=== PATIENT | female | born 1950 | race Caucasian/White ===

== ENCOUNTER 2021-01-04 17:02 | Outpatient (REF) | payer MEDICARE, BC, SELFPAY ==
[2021-01-04 18:10] LABS: Anion Gap 12.1 mmol/L (3-11); BUN 11 mg/dL (7-18); CO2 29.9 mmol/L (21.0-32.0); CREATININE 0.7 mg/dL (0.55-1.02); Calcium 9.4 mg/dL (8.5-10.1); Calculated LDL 98 mg/dL (<100); Chloride 101 mmol/L (98-107); Cholesterol 219 mg/dL (<200); Glucose 89 mg/dL (74-106); HDL Cholesterol 102 mg/dL (40-60); Potassium 3.8 mmol/L (3.5-5.1); Sodium 143 mmol/L (136-145); Triglyceride 98 mg/dL (<150)
== END 2021-01-04 17:03 | disposition home or self-care (01) ==
LOC: NCHCN 17:02
PROVIDERS: Visit Provider Family Medicine
DX: E78.5 Hyperlipidemia, unspecified (principal); I10 Essential (primary) hypertension
CPT/HCPCS: 80048; 80061

== ENCOUNTER 2022-01-14 11:58 | Outpatient (REF) | payer MEDICARE, BC, SELFPAY ==
[2022-01-14 14:44] LABS: Abs Immature Grans 0.01 10^3/uL (0.0-0.06); Absolute Basophil Count 0.02 10^3/uL (0.0-0.2); Absolute Eosinophil Count 0.15 10^3/uL (0.0-0.7); Absolute Lymphocyte Count 0.78 10^3/uL (1.2-3.4); Absolute Monocyte Count 0.37 10^3/uL (0.1-0.8); Absolute Neutrophil Count 2.11 10^3/uL (1.2-6.7); Basophils % 0.6; Eosinophils % 4.4; HCT 46.1 % (36.0-46.0); HGB 15.8 g/dL (11.2-15.7); Immature Grans % 0.3; Lymphocytes % 22.7; MCHC 34.3 % (32.0-36.0); MCV 93.5 fL (80-95); MPV 9.9 fL (8.0-11.0); Monocytes % 10.8; Neutrophils % 61.2; Nucleated RBC 0 %; Platelet Count 258 10^3/uL (130-400); RBC 4.93 10^6/uL (3.93-5.22); RDW 11.7 % (11.7-14.6); RDW-SD 40.9 fL; WBC 3.44 10^3/uL (4.4-10.8)
[2022-01-14 15:26] LABS: Anion Gap 8.8 mmol/L (3-11); BUN 12 mg/dL (7-18); CO2 30.2 mmol/L (21.0-32.0); CREATININE 0.8 mg/dL (0.55-1.02); Calcium 10.1 mg/dL (8.5-10.1); Chloride 99 mmol/L (98-107); Glucose 101 mg/dL (74-106); Potassium 3.6 mmol/L (3.5-5.1); Sodium 138 mmol/L (136-145)
== END 2022-01-14 11:59 | disposition home or self-care (01) ==
LOC: NCHCN 11:58
PROVIDERS: Visit Provider Family Medicine
DX: D72.819 Decreased white blood cell count, unspecified (principal); I10 Essential (primary) hypertension
CPT/HCPCS: 80048; 85025

== ENCOUNTER 2023-01-28 16:23 | Outpatient (REF) | payer MEDICARE, BC, SELFPAY ==
[2023-01-28 16:07] LABS: HCT 43.4 % (36.0-46.0); HGB 15.2 g/dL (11.2-15.7); MCH 32.5 pg (27.0-33.0); MCV 93 fL (80-95); MPV 9.6 fL (8.0-11.0); Platelet Count 256 10^3/uL (130-400); RBC 4.67 10^6/uL (3.93-5.22); RDW 11.8 % (11.7-14.6); RDW-SD 40.4 fL; WBC 3.37 10^3/uL (4.4-10.8)
[2023-01-28 16:28] LABS: Anion Gap 9.6 mmol/L (3-11); BUN 10 mg/dL (7-18); CO2 29.4 mmol/L (21.0-32.0); CREATININE 0.8 mg/dL (0.55-1.02); Chloride 102 mmol/L (98-107); Estimated GFR 79.22 (mL/min/1.73m2); Glucose 100 mg/dL (74-106); Sodium 141 mmol/L (136-145)
[2023-01-29 10:44] LABS: Hepatitis C Ab w Rflx HCV PCR Negative (Negative)
== END 2023-01-28 16:24 | disposition home or self-care (01) ==
LOC: NCHCN 16:23
PROVIDERS: Visit Provider Family Medicine
DX: Z00.00 Encounter for general adult medical examination without abnormal findings (principal); I10 Essential (primary) hypertension; D75.1 Secondary polycythemia; D72.819 Decreased white blood cell count, unspecified
CPT/HCPCS: 80048; 85027; 86803

== ENCOUNTER 2023-08-19 15:23 | Outpatient (REF) | payer MEDICARE, BC, SELFPAY ==
[2023-08-19 16:02] LABS: Abs Immature Grans 0.01 10^3/uL (0.0-0.06); Absolute Basophil Count 0.02 10^3/uL (0.0-0.2); Absolute Monocyte Count 0.34 10^3/uL (0.1-0.8); Absolute Neutrophil Count 2.37 10^3/uL (1.2-6.7); Basophils % 0.5; Eosinophils % 2.6; HCT 41.9 % (36.0-46.0); HGB 14.9 g/dL (11.2-15.7); Immature Grans % 0.3; MCH 32.6 pg (27.0-33.0); MCHC 35.6 % (32.0-36.0); MCV 92 fL (80-95); MPV 9.7 fL (8.0-11.0); Monocytes % 8.9; Neutrophils % 61.7; Platelet Count 266 10^3/uL (130-400); RBC 4.57 10^6/uL (3.93-5.22); RDW 11.8 % (11.7-14.6); RDW-SD 39.8 fL; WBC 3.84 10^3/uL (4.4-10.8)
[2023-08-19 18:02] LABS: ALT 39 U/L (14-59); AST 21 U/L (15-37); Albumin 4.5 g/dL (3.4-5.0); Alkaline Phosphatase 69 U/L (46-116); Anion Gap 9.9 mmol/L (3-11); BUN 9 mg/dL (7-18); Bilirubin, Total 0.5 mg/dL (0.2-1.0); CO2 27.1 mmol/L (21.0-32.0); CREATININE 0.7 mg/dL (0.55-1.02); Calcium 9.6 mg/dL (8.5-10.1); Calculated LDL 114 mg/dL (<100); Chloride 98 mmol/L (98-107); Cholesterol 228 mg/dL (<200); Estimated GFR 92.98 (mL/min/1.73m2); Glucose 98 mg/dL (74-106); HDL Cholesterol 100 mg/dL (40-60); Potassium 3.6 mmol/L (3.5-5.1); Sodium 135 mmol/L (136-145); Total Protein 7.2 g/dL (6.4-8.2); Triglyceride 73 mg/dL (<150)
[2023-08-19 22:55] LABS: Parathyroid Hormone,Intact 40 pg/mL (19-88)
== END 2023-08-19 15:24 | disposition home or self-care (01) ==
LOC: NCHCN 15:23
PROVIDERS: Visit Provider Nurse Practitioner Family
DX: E78.5 Hyperlipidemia, unspecified (principal); I10 Essential (primary) hypertension; Z83.49 Family history of other endocrine, nutritional and metabolic diseases; D72.819 Decreased white blood cell count, unspecified
CPT/HCPCS: 80053; 80061; 83970; 85025

== ENCOUNTER → 2024-06-04 14:00 | Outpatient (CLI) | payer MEDICARE, BC, SELFPAY ==
--- NOTE | 2024-06-04 13:49 | DI.RAD_ITS ---
Exam(s) XR CERVICAL SPINE COMP 4-5V EXAM: XR CERVICAL SPINE COMP 4-5V CLINICAL HISTORY: M54.12 Cervical radiculopathy. TECHNIQUE: 2D digital imaging was performed. Five views were performed. COMPARISON: No exams were available for comparison FINDINGS: BONES: No fracture or destructive lesion. Vertebral bodies are unremarkable. Prominent facet joint degenerative changes throughout. Severe degenerative changes also present at C1-2. DISKS: Mild narrowing of the C4-5 disc space. Prominent endplate osteophytes. Moderate narrowing of the C5-6 disc space with prominent endplate osteophytes. Bilateral neural foraminal narrowing at th cristino levels. ALIGNMENT: Cervical spinal alignment is within normal limits. SOFT TISSUE: Normal. The lung apices are clear. IMPRESSION: Severe degenerative changes at C1-2. Bilateral neural foraminal narrowing at C4-5 and C5-6 very to c ombination of degenerative changes. DATA REPOSITORY: RADIATION DOSE DELIVERED:
--- OUTSIDE RECORDS SUMMARY | 2024-06-04 14:24 | XMS_ITS | Encounter Summary ---
[place] [address] Care Team Providers Care Maintenance Worker Swimming Pool Name Role Phone Dar Lester MD Primary Care Provider [phone] Reason for Referral * Consultation (Routine) - Closed Specialty Diagnoses / Procedures Referred By Contesther t Referred To Contact Hematology and Oncology Diagnoses Polycythemia, secondary Leukopenia, unspecified type Dar Lester MD [address] [place] [address] [facility] [address] [place] [address] Referral ID Status Reason Start Date Expiration Date V isits Requested Visits Authorized [id number] Closed Consult, Test & Treat 02/04/2022 02/04/2023 6 6 Encounter Details Date Type Department Care Team (Latest Contact Info) Description 02/04/2022 Transcribe Orders eDH Incoming Referrals [phone] Dar Lester MD [address] [place] [address] Polycythemia, secondary; Leukopenia, unspecified type Social History Tobacco Use Types Packs/Day Years Used Date Smoking Tobacco: Former Smokeless Tobacco: Never Comments:40 years ago Alcohol Use Standard Drinks/Week Comments Yes 0 (1 standard drink = 0.6 oz pur e alcohol) wine Sex and Gender Information Value Date Recorded Sex Assigned at Female 01/31/2021 4:13 PM EDT Gender Identity Female 08/31/2023 10:11 AM EDT Sexual Orientation Straight 01/31/2021 4: 13 PM EDT documented as of this encounter Plan of Treatment Scheduled Referrals Name Type Priority Associated Diagnoses Orde r Schedule Referral to Hematology and Oncology Outpatient Referral Routine Polycythemia, secondary Leukopenia, unspecified type Ordered: 02/04/2022 documented as of this encounter Visit Diagnoses Diagnosis Polycythemia, secondary Leukopenia, unspecified type documented in this encounter Care Teams Maintenance Worker Swimming Pool Relationship Specialty Start Date End Date Dar Lester MD [address] [place] [address] PCP - General Family Medicine 02/02/21 documented as of this encounter
--- OUTSIDE RECORDS SUMMARY | 2024-06-04 14:24 | XMS_ITS | Encounter Summary ---
Author Organization [facility] Address [address] [place] [address] Care Team Providers Care Court Specialist Name Role Phone Dar Lester MD Primary Care Provider [phone] Reason for Referral * Radiology Services (Routine/Next Available) - Authorization Not Required Specialty Diagnoses / Procedures Referred By Andreinaac nathalia Referred To Contact Diagnoses Visit for screening mammogram Procedures MA BREAST SCREENING KIMBER BILATERAL Madelin Burgess CNM [address] [place] [address] [facility] Referral ID Status Reason Start Date Expiration Date Visits Requested Visits Authorized [id number] Authorization Not Required 2 1 1 Reason for Visit * Radiology Services (Routine/Next Available) - Authorization Not Required Specialty Diagnoses / Procedures Referred By Terese sloan Referred To Contact Diagnoses Visit for screening mammogram Procedures MA BREAST SCREENING KIMBER BILATERAL Madelin Burgess CNM [address] [place] [address] [facility] Referral ID Status Reason Start Date Expiration Date Visits Requested Visits Authorized [id number] Authorization Not Required 2 1 1 Encounter Details Date Type Department Care Team (Latest Contact Info) Description 10/23/2022 11:30 EST - 10/23/2022 23:59 EST Hospital Encounter [facility] - [facility] Mammography [address] [place], [place] [address] Visit for screening mammogram Discharge Disposition: Home or Self Care Social History Tobacco Use Types Packs/Day Years Used Date Smoking Tobacco: Never Assessed Sex and Gender Information Value Date Recorded Sex Assigned at Not on file Gender Identity Not on file Sexual Orientation Not on file documented as of this encounter Last Filed Vital Signs Vital Sign Reading Time Taken Comments Blood Pressure - - Pulse - - Temperature - - Respiratory Rate - - Oxygen Saturation - - Inhaled Oxygen Concentration - - Weight 64.4 kg (142 lb) 10/23/2022 1236 EST Height 157.5 cm (5' 2) 10/23/2022 1236 EST Body Mass Index 25.97 10/23/2022 1236 EST documented in this encounter Discharge Disposition Disposition Code Departure Means Destination Home or Self Care documented in this encounter Plan of Treatment Not on file documented as of this encounter Procedures Procedure Name Priority Date/Time Associated Diagnosis Comments MA BREAST SCREENING KIMBER BILATERAL Routine 10/23/2022 12:38 EST Visit for screening mammogram documented in this encounter Results * MA BREAST SCREENING KIMBER BILATERAL (10/23/2022 12:38 EST) Anatomical Region Laterality Modality Breast Bilateral Mammography 10/24/2022 16:3 9 EST Impressions 10/24/2022 16:39 EST Negative, no evidence of malignancy. RECOMMENDATION: Routine screening mammography is recommended. OVERALL ASSESSMENT: BI-RADS 1: Negative These results will be communicated to your patient via a lay letter from Radiology. If any additional imaging is needed we will contact your patient directly. Narrative 10/24/2022 16:39 EST MA BREAST SCREENING KIMBER BILATERAL ??10/23/2022 11:30 AM History: routine screening 10/22/21 Comparison: ??Comparison has been made to previous images. Technique: Routine 3D tomosynthesis with synthesized 2D views with CAD Bilateral Breast Composition: The breast tissue is heterogenously dense, which may obscure small masses. Bilateral Breast Findings: ??No significant masses, calcifications or other abnormalities are seen. Procedure Note Riaz Porras MD - 10/24/2022 MA BREAST SCREENING KIMBER BILATERAL 10/23/2022 11:30 AM History: routine screening 10/22/21 Comparison: Comparison has been made to previous images. Technique: Routine 3D tomosynthesis with synthesized 2D views with CAD Bilateral Breast Composition: The breast tissue is heterogenously dense,which may obscure small masses. Bilateral Breast Findings: No significant masses, calcifications or otherabnormalities are seen. IMPRESSION Negative, no evidence of malignancy. RECOMMENDATION: Routine screening mammography is recommended. OVERALL ASSESSMENT: BI-RADS 1: Negative These results will be communicated to your patient via a lay letter fromRadiology. If any additional imaging is needed we will contact yourpatient directly. Madelin Burgess CNM IMG MAMMOGRAPH Y ORDERABLES documented in this encounter Visit Diagnoses Diagnosis Visit for screening mammogram Other screening mammogram documented in this encounter Care Teams Court Specialist Relationship Specialty Start Date End Date Dar Lester MD [address] [place] [address] PCP - General 10/23/22 documented as of this encounter
--- OUTSIDE RECORDS SUMMARY | 2024-06-04 14:24 | XMS_ITS | Encounter Summary ---
Author Organization [facility] Address [facility] [place] [address] Care Team Providers Care Jewel Staker Name Role Phone Dar Lester MD Primary Care Provider [phone] Reason for Visit * Reason Comments Advice Only * Consultation (Routine) - Closed Specialty Diagnoses / Procedures Referred By Contac t Referred To Contact Hematology and Oncology Diagnoses Polycythemia, secondary Leukopenia, unspecified type Dar Lester MD [address] [place] [address] [place] [address] [facility] [address] [place] [address] Referral ID Status Reason Start Date Expiration Date V isits Requested Visits Authorized [id number] Closed Consult, Test & Treat 02/04/2022 02/04/2023 6 6 Encounter Details Date Type Department Care Team (Late st Contact Info) Description 04/05/2022 12:30 PM EDT Office Visit Hematology [place] [address] Kaela Can MD [facility] [place] [address] Erythrocytosis; Leukopenia, unspecified type Social History Tobacco Use Types Packs/Day Years Used Date Smoking Tobacco: Former Smokeless Tobacco: Never Comments:40 years ago Alcohol Use Standard Drinks/Week Comments Yes 0 (1 standard drink = 0.6 oz pur e alcohol) wine Overall Financial Resource Strain (CARDIA) Answe r Date Recorded How hard is it for you to pa y for the very basics like food, housing, medical care, and heating? Not hard at all 04/02/2022 Hunger Vital Sign Answer Date Recorded Within the past 12 months, y ou worried that your food would run out before you got the money to buy more. Never true 04/02/20 22 Within the past 12 months, t he food you bought just didn't last and you didn't have money to get more. Never true 04/02/2022 PRAPARE - Transportation Answer Date Re corded In the past 12 months, has l ack of transportation kept you from medical appointments or from getting medications? No 03/05 In the past 12 months, has l ack of transportation kept you from meetings, work, or from getting things needed for daily living? No 04/02/2022 Housing Stability Vital Sign Answer Ari e Recorded In the last 12 months, was t here a time when you were not able to pay the mortgage or rent on time? No 04/02/2022 In the last 12 months, how many places have you lived? 1 04/02/2022 In the last 12 months, was t here a time when you did not have a steady place to sleep or slept in a fci (including now)? No 04/02/2022 Sex and Gender Information Value Date Recorded Sex Assigned at Female 01/31/2021 4:13 PM EDT Gender Identity Female 08/31/2023 10:11 AM EDT Sexual Orientation Straight 01/31/2021 4: 13 PM EDT documented as of this encounter Last Filed Vital Signs Vital Sign Reading Time Taken Comments Blood Pressure 164/87 04/05/2022 12:20 PM EDT Pulse 75 04/05/2022 12:20 PM EDT Temperature 36.3 ??C (97.3 ??F) 04/05/2022 12:20 PM E DT Respiratory Rate 16 04/05/2022 12:20 PM EDT Oxygen Saturation 99% 04/05/2022 12:20 PM EDT Inhaled Oxygen Concentration - - Weight 65.4 kg (144 lb 3.2 oz) 04/05/2022 12:20 PM EDT Height 158 cm (5' 2.21) 04/05/2022 12:20 PM EDT Body Mass Index 26.2 04/05/2022 12:20 PM EDT documented in this encounter Progress Notes * Kaela Keller MD - 04/05/2022 12:30 PM EDT [facility] HEMATOLOGY CONSULTATION VISIT NOTE DATE OF VISIT : 04/05/22 REASON FOR VISIT: Cheryl Farah is a 71 y.o. female referred by Dar Laura for evaluation of leukopenia and erythrocytosis. The history is obtained from the patient, and I also have reviewed all the available medical records provided by the referring physician and located in the electronic medical records. HISTORY OF PRESENT ILLNESS Cheryl Farah is a 71 y.o. female with PMH of Hypertension, referred for evaluation of leukopenia and erythrocytosis. . Labs from referring MD: ??? 02/04/2022: WBC: 3.4, normal differential, Hgb: 15.8, HCT: 46.1, MCV: 93.5, platelets: 258 INTERIM Hx: In office today, Cheryl Farah is here for initial consultation. - No h/o frequent infections. - She reports that for the most part she is pretty healthy. - No h.o snoring. - No pruritus - No B symptoms - No erythromelalgia symptoms. - She relates that she had ricketsial pox in 2017 after her trip to [place]. - No active cardiac/resp/GI issues; Rest of the ROS: Negative PROBLEM LIST Patient Active Problem List Diagnosis ??? Pain in finger of right hand PAST SURGICAL Hx: No past surgical history on file. MEDICATIONS ??? losartan (Cozaar) 25 mg Tablet ??? Red Yeast Rice Extract 600 mg Capsule ??? cholecalciferol, Vitamin D3, 50 mcg (2,000 unit) Capsule ??? fluticasone propionate (FLONASE) 50 mcg/actuation [place], Suspension ??? tacrolimus (PROTOPIC) 0.1 % Ointment ??? amLODIPine (Norvasc) 2.5 mg Tablet ??? hydroCHLOROthiazide (Hydrodiuril) 25 mg Tablet ??? calcium-vitamin D3 600 mg(1,500mg) -400 unit Tablet ??? LORazepam (Ativan) 0.5 mg Tablet ??? amoxicillin (AMOXIL) 500 mg Tablet ??? multivitamin Capsule ??? Biotin 10 mg Tablet ??? estradioL (ESTRACE) 0.01 % (0.1 mg/gram) Cream ??? HYDROcodone-acetaminophen ([place]) 5-325 mg Tablet ??? hydrocortisone 2.5 % Ointment ??? warfarin (Coumadin) 1 mg Tablet ??? aspirin EC 81 mg Tablet, Delayed Release (E.C.) ALLERGIES/ADR Allergies Allergen Reactions ??? Doxycycline Puffy eyes ??? Lisinopril Other reaction(s): Cough PERSONAL and SOCIAL HISTORY: ?? Lives in with her in [place], [place]. ?? Work history: ?? ETOH: ?? Smoking: quit in her 20yrs; ?? HIPPA Contact Permission: OK to leave voice mail on phone. FAMILY HISTORY Family History Problem Relation Age of Onset ??? Diabetes Neg Hx PHYSICAL EXAM VITAL SIGNS: Blood pressure 164/87, pulse 75, temperature 36.3 ??C (97.3 ??F), temperature source Temporal, resp. rate 16, height 158 cm (5' 2.21), weight 65.4 kg (144 lb 3.2 oz), SpO2 99 %. ECOG PS: 0 GENERAL: Cheryl Farah is a well-appearing 71 y.o. female in no acute distress. HEENT: Eyes: b/l PERRL, no conjunctival pallor , no scleral icterus; Sinuses: non-tender; Oropharynx : moist , clear, No lesions, No thrush. ENDOCRINE: No thyromegaly palpated. CARDIOVASCULAR: Heart with regular rate and rhythm without S3,S4 or murmurs. PULMONARY: Lungs are clear to auscultation without rales, rhonchi or wheezing. GASTROINTESTINAL: Abdomen soft and non-tender without palpable masses or hepatosplenomegaly. MUSCULOSKELETAL: Neck supple with full ROM. No spine or CVA tenderness. SKIN: No rashes, bruises or petechiae. LYMPH: No abnormal lymphadenopathy. NEUROLOGICAL: Alert and oriented to person, place and time; No focal neurological deficits; EXT: No peripheral edema. PSYCHIATRIC: normal affect and mood LABORATORY Recent Results (from the past 72 hour(s)) Folate, serum Result Value Ref Range Folate Lvl >20.0 4.8 - 24.2 ng/mL Vitamin B12 Result Value Ref Range Vitamin B-12 654 232 - 1,245 pg/mL Erythropoietin Level Result Value Ref Range Erythropoietin 10.0 2.6 - 18.5 mIU/mL Hemogram Result Value Ref Range WBC 4.7 4.0 - 9.5 x10(3)/mcL RBC 4.77 4.00 - 5.21 x10(6)/mcL Hemoglobin 15.3 11.7 - 15.5 g/dL Hematocrit 44.6 35.7 - 45.8 % MCV 93.5 82.6 - 94.4 fL MCH 32.1 (H) 27.1 - 32.0 pg MCHC 34.3 31.7 - 35.0 g/dL Platelets 238 145 - 357 x10(3)/mcL RDWSD 41.9 37.0 - 46.0 fL RDWCV 12.1 11.5 - 14.1 % MPV 9.6 7.6 - 12.9 fL nRBC % Auto 0.0 % nRBC Abs Auto 0.000 0.000 - 0.000 x10(3)/mcL Differential, Automated Result Value Ref Range Neutrophils % 60.8 % Neutr Abs (ANC) 2.84 1.70 - 6.10 x10(3)/mcL Lymphocytes % 25.1 % Lymphocytes Abs 1.2 0.9 - 3.2 x10(3)/mcL Monocytes % 9.6 % Monocyte Abs 0.4 0.3 - 0.9 x10(3)/mcL Eosinophils % 3.9 % Eosinophils Abs 0.2 0.0 - 0.4 x10(3)/mcL Basophils % 0.6 % Basophils Abs 0.0 0.0 - 0.1 x10(3)/mcL Immature Gran % 0.00 % Awa Gran Abs 0.00 0.00 - 0.04 x10(3)/mcL RADIOLOGY - None ASSESSMENT & PLANS Cheryl Farah is a 71 y.o. female with PMH of Hypertension, referred for evaluation of leukopenia and erythrocytosis. . Her recent CBC from PCPs office showed mild leukopenia with WBC of 3.4, normal differential, slightly elevated H&H at 15.8/46.1 with normal MCV and normal platelet count. Clinically, she is asymptomatic. Exam unremarkable. I reviewed the differential for her leukopenia and erythrocytosis and recommended some blood work today -CBC, B12 and folate to evaluate for leukopenia, erythropoietin level, JAK2 with reflex to myeloid gene panel. CBC from today came back completely unremarkable with normal WBC and normal H&H. Erythropoietinlevel came back normal at 10.0. Of note, in polycythemia vera erythropoietin level will be low. So,overall my suspicion for polycythemia vera is quite low with her normal H&H today and normal erythropoietin level. B12 and folic acid levels are normal. As her H&H came back normal, I canceled JAK2 with reflex to myeloid gene panel testing.. As her CBC from today came back completely normal and she has no signs or symptoms concerning for hematological disorder, she does not need any further follow-up with me/hematology. I reviewed my impression and recommendations with Cheryl Farah and answered all the questions.. Pt agreed with the plan. Thank you Dar Ni for asking us to see this very pleasant patient. Please don't hesitate to contact me if you'd like to discuss this patient's situation further. Kaela Keller MD [facility] CC: MD Tayler Stoner John documented in this encounter Plan of Treatment Not on file documented as of this encounter Results * Folate, serum (04/05/2022 1:39 PM EDT) Folate Lvl >20.0 4.8 - 24.2 ng/mL [facility] Blood 04/05/2022 1:39 PM EDT 04/05/2022 1:56 PM EDT Narrative Resulting Agency Comment Spec In Lab Kaela Can MD CHEMISTRY ORDERA BLES [facility] [place] [address] * Vitamin B12 (04/05/2022 1:39 PM EDT) Vitamin B-12 654 232 - 1,245 pg/mL [facility] Blood 04/05/2022 1:39 PM EDT 04/05/2022 1:56 PM EDT Narrative Resulting Agency Comment Spec In Lab Kaela Can MD CHEMISTRY ORDERA BLES Performing Organization Address [facility] Co de Phone Number [facility] [place] [address] * Erythropoietin Level (04/05/2022 1:39 PM EDT) [facility] Erythropoietin 10.0 2.6 - 18.5 mIU/mL [facility] Comment: Test Performed by: [facility] [address] [place] [address] Coil Connector Repairer: Matheus Lazo M.D. Ph.D.; CLIA# [id number] Blood 04/05/2022 1:39 PM EDT 04/05/2022 3:57 PM EDT Narrative Resulting Agency Comment Spec In Lab Kaela Can MD CHEMISTRY ORDERA BLES Performing Organization Address [facility] Co de Phone Number [facility] [place] [address] documented in this encounter Visit Diagnoses Diagnosis Erythrocytosis Polycythemia, secondary Leukopenia, unspecified type documented in this encounter Care Teams Jewel Staker Relationship Specialty Start Date End Date Dar Lester MD [facility] [place] [address] [place] [address] PCP - General Family Medicine 02/02/21 documented as of this encounter
--- OUTSIDE RECORDS SUMMARY | 2024-06-04 14:24 | XMS_ITS | Encounter Summary ---
Author Organization [facility] Address [facility] [place] [address] Care Team Providers Care Ornamenter Hand Name Role Phone Jean-Paul Enciso MD Primary Care Provider [phone] Encounter Details Date Type Department Care Team (Late st Contact Info) Description 08/25/2020 Telephone [place] [id number] Kelley Cardenas PA [facility] [place] [address] Social History Tobacco Use Types Packs/Day Years [...] as of this encounter Plan of Treatment Not on file documented as of this encounter Visit Diagnoses Not on filedocumented in this encounter Care Teams Ornamenter Hand Relationship Specialty Start Date End Date Jean-Paul Enciso MD [facility] [address] [place] [address] PCP - General General Internal Medicine 08/24/2002/01 documented as of this encounter
--- OUTSIDE RECORDS SUMMARY | 2024-06-04 14:24 | XMS_ITS | Encounter Summary ---
Author Organization [facility] Address [facility] [place] [address] Care Team Providers Care Internet Sales Representative Name Role Phone Jean-Paul Enciso MD Primary Care Provider [phone] Encounter Details Date Type Department Care Team (Late st Contact Info) Description 08/24/2020 Orders [place] [address] Marck Delgado MD [facility] [address] [place] [address] Right hand pain Social History Tobacco Use Types Packs/Day Years [...] documented as of this encounter Results * XR Hand Min 3 views Right (Generic) (08/24/2020 2:17 PM EDT) Anatomical Region Laterality Modality Hand Right Digital Radiogra phy Impressions 08/24/2020 3:02 PM EDT Mild osteoarthropathy within scattered IP, first MCP, and first CMC joints. Thank you for letting us participate in the care of this patient. For questions regarding this report, please contact the number below. ? Narrative 08/24/2020 3:02 PM EDT EXAMINATION: XR HAND MIN 3 VIEWS RIGHT (GENERIC) CLINICAL HISTORY: R hand pain TECHNIQUE: 3 views RIGHT hand COMPARISON: None FINDINGS: No fracture or malalignment. No osseous erosion or periosteal reaction. There are osteoarthritic changes at scattered interphalangeal joints, the first metacarpophalangeal joint and the first carpometacarpal joint. Osseous mineralization is normal. No soft tissue swelling. Procedure Note Sebas Benjamin MD - 08/24/2020 EXAMINATION: XR HAND MIN 3 VIEWS RIGHT (GENERIC) CLINICAL HISTORY: R hand pain TECHNIQUE: 3 views RIGHT hand COMPARISON: None FINDINGS: No fracture or malalignment. No osseous erosion or periosteal reaction.There are osteoarthritic changes at scattered interphalangeal joints, thefirst metacarpophalangeal joint and the first carpometacarpal joint. Osseous mineralization is normal. No soft tissue swelling. IMPRESSION Mild osteoarthropathy within scattered IP, first MCP, and first CMCjoints. Thank you for letting us participate in the care of this patient. Forquestions regarding this report, please contact the number below. Marck Delgado MD IMG DX ORDERABLES documented in this encounter Visit Diagnoses Diagnosis Bilateral hand pain Pain in limb Right hand pain Pain in limb Right hand pain Pain in limb documented in this encounter Care Teams Internet Sales Representative Relationship Specialty Start Date End Date Jean-Paul Enciso MD [facility] [address] [place] [address] [phone] (work) PCP - General General Internal Medicine 08/24/2002/01 documented as of this encounter
--- OUTSIDE RECORDS SUMMARY | 2024-06-04 14:24 | XMS_ITS | Encounter Summary ---
Author Organization [facility]ly [facility] Address [facility] [place] [address] Care Team Providers Care Ssas Developer Name Role Phone Dar Lester MD Primary Care Provider [phone] Encounter Details Date Type Department Care Team (Latest Contact Info) Description 04/05/2022 1:28 PM EDT - 04/05/2022 11:59 PM EDT Hospital Encounter Hematology and Oncology at [facility] [place] [phone] Erythrocytosis; Leukopenia, unspecified type Discharge Disposition: Home Social History Tobacco Use Types Packs/Day Years [...] place to sleep or slept in a long-term (including now)? No 04/02/2022 Sex and Gender Information Value Date Recorded Sex Assigned at Female 01/31/2021 4:13 PM EDT Gender Identity Female 08/31/2023 10:11 AM EDT Sexual Orientation Straight 01/31/2021 4: 13 PM EDT documented as of this encounter Medications at Time of Discharge Medication Sig Dispensed Refills Start Date End Date losartan (Cozaar) 25 mg Tablet Take 25 mg by mouth daily. Red Yeast Rice Extract 600 mg Capsule Take by mouth. cholecalciferol, Vitamin D3, 50 mcg (2,000 unit) Capsule Take by mouth. fluticasone propionate (FLONASE) 50 mcg/actuation [place], Suspension fluticasone propionate 50 mcg/actuation nasal spray,suspension tacrolimus (PROTOPIC) 0.1 % Ointment tacrolimus 0.1 % topical ointment amLODIPine (Norvasc) 2.5 mg Tablet Take 2.5 mg by mouth Daily. hydroCHLOROthiazide (Hydrodiuril) 25 mg Tablet Take 25 mg by mouth daily. calcium-vitamin D3 600 mg(1,500mg) -400 unit Tablet Calcium 600 + D(3) 600 mg (1,500 mg)-400 unit tablet Take by oral route. LORazepam (Ativan) 0.5 mg Tablet Take 0.5 mg by mouth as needed. PRN amoxicillin (AMOXIL) 500 mg Tablet 1 hour before dental procedures multivitamin Capsule multivitamin Biotin 10 mg Tablet Take by mouth daily. estradioL (ESTRACE) 0.01 % (0.1 mg/gram) Cream estradiol 0.01% (0.1 mg/gram) vaginal cream HYDROcodone-acetamino phen ([place]) 5-325 mg Tablet hydrocodone 5 mg-acetaminophen 325 mg tablet 04/07/2022 hydrocortisone 2.5 % Ointment hydrocortisone 2.5 % topical ointment APPLY A SMALL AMOUNT TO AFFECTED AREA ONCE A DAY TO FOREHEAD AT NIGHT 04/07/2022 warfarin (Coumadin) 1 mg Tablet warfarin 1 mg tablet 022 aspirin EC 81 mg Tablet, Delayed Release (E.C.) Take 81 mg by mouth Daily. 04/07/2022 documented as of this encounter Plan of Treatment Not on file documented as of this encounter Procedures Procedure Name Priority Date/Time Associated Diagnosis Comments HEMOGRAM Routine 04/05/2022 1:39 PM EDT Erythrocytosis Leukopenia, unspecified type DIFFERENTIAL, AUTOMATED Routine 04/05/2022 1:39 PM EDT Erythrocytosis Leukopenia, unspecified type HC PCH EPO (ERYTHROPOIETIN) Routine 04/05/2022 1:39 PM EDT Erythrocytosis Leukopenia, unspecified type HC CBC,PLT & AUTO DIFF Routine 04/05/2022 1:39 PM EDT Erythrocytosis Leukopenia, unspecified type HC VENIPUNCTURE Routine 04/05/2022 1:39 PM EDT Erythrocytosis Leukopenia, unspecified type HC VITAMIN B12 SERUM Routine 04/05/2022 1:39 PM EDT Erythrocytosis Leukopenia, unspecified type documented in this encounter Results * Differential, Automated (04/05/2022 1:39 PM EDT) Neutrophils % 60.8 % [facility] Neutr Abs (ANC) 2.84 1.70 - 6.10 x10(3)/[facility] Lymphocytes % 25.1 % [facility] Lymphocytes Abs 1.2 0.9 - 3.2 x10(3)/[facility] Monocytes % 9.6 % [facility] Monocyte Abs 0.4 0.3 - 0.9 x10(3)/[facility] Eosinophils % 3.9 % [facility] Eosinophils Abs 0.2 0.0 - 0.4 x10(3)/[facility] Basophils % 0.6 % [facility] Basophils Abs 0.0 0.0 - 0.1 x10(3)/[facility] Immature Gran % 0.00 % [facility] Comment: Immature granulocytes(IG's)percentage and absolute count will include metamyelocytes, myelocytes, and promyelocytes. Blood smears from CBCs yielding IG's will be scanned manually for concordance. If this scan disagrees with the automated IG or if promyelocytes are noted, a manual differential will be performed. Awa Gran Abs 0.00 0.00 - 0.04 x10(3)/[facility] Blood 04/05/2022 1:39 PM EDT 04/05/2022 1:56 PM EDT Narrative Resulting Agency Comment Spec In Lab Kaela Can MD HEMATOLOGY ORDER [place] [facility] [place] [address] * (ABNORMAL) Hemogram (04/05/2022 1:39 PM EDT) WBC 4.7 4.0 - 9.5 x10(3)/[facility] RBC 4.77 4.00 - 5.21 x10(6)/[facility] Hemoglobin 15.3 11.7 - 15.5 g/dL [facility] Hematocrit 44.6 35.7 - 45.8 % [facility] MCV 93.5 82.6 - 94.4 fL [facility] MCH 32.1(H) 27.1 - 32.0 pg [facility] MCHC 34.3 31.7 - 35.0 g/dL [facility] Platelets 238 145 - 357 x10(3)/[facility] RDWSD 41.9 37.0 - 46.0 fL [facility] RDWCV 12.1 11.5 - 14.1 % [facility] MPV 9.6 7.6 - 12.9 fL [facility] nRBC % Auto 0.0 % [facility] nRBC Abs Auto 0.000 0.000 - 0.000 x10(3)/mcL [facility] Blood 04/05/2022 1:39 PM EDT 04/05/2022 1:56 PM EDT Narrative Resulting Agency Comment Spec In Lab Kaela Can MD HEMATOLOGY ORDER [place] [facility] [place] [address] * Erythropoietin Level (04/05/2022 1:39 PM EDT) Erythropoietin 10.0 2.6 - 18.5 mIU/mL [facility] Comment: Test Performed by: [place] [address] Pediatric Physiatrist: Matheus Lazo M.D. Ph.D.; CLIA# [id number] Blood 04/05/2022 1:39 PM EDT 04/05/2022 3:57 PM EDT Narrative Resulting Agency Comment Spec In Lab Kaela Can MD CHEMISTRY ORDERA BLES Performing Organization Address City/[facility]/ZIP Co de Phone Number [facility] [place] [address] * Vitamin B12 (04/05/2022 1:39 PM EDT) Vitamin B-12 654 232 - 1,245 pg/mL [facility] Blood 04/05/2022 1:39 PM EDT 04/05/2022 1:56 PM EDT Narrative Resulting Agency Comment Spec In Lab Kaela Can MD CHEMISTRY ORDERA BLES Performing Organization Address City/[facility]/ZIP Co de Phone Number [facility] [place] [address] * Folate, serum (04/05/2022 1:39 PM EDT) Folate Lvl >20.0 4.8 - 24.2 ng/mL [facility] Blood 04/05/2022 1:39 PM EDT 04/05/2022 1:56 PM EDT Narrative Resulting Agency Comment Spec In Lab Kaela Can MD CHEMISTRY ORDERA BLES [facility] [place] [address] documented in this encounter Visit Diagnoses Diagnosis Erythrocytosis Polycythemia, secondary Leukopenia, unspecified type documented in this encounter Care Teams Ssas Developer Relationship Specialty Start Date End Date Dar Lester MD [address] [place] [address] PCP - General Family Medicine 02/02/21 documented as of this encounter
--- OUTSIDE RECORDS SUMMARY | 2024-06-04 14:24 | XMS_ITS | Referral Summary ---
Author Organization [facility] Address [address] [place] [address] Care Team Providers Care Rolling Down Machine Operator Name Role Phone Dar Lester MD Primary Care Provider [phone] Allergies No known active allergies Social History Tobacco Use Types Packs/Day Years Used Date Smoking Tobacco: Never Assessed Sex and Gender Information Value Date Recorded Sex Assigned at Not on file Gender Identity Not on file Sexual Orientation Not on file Last Filed Vital Signs Vital Sign Reading Time Taken Comments Blood Pressure - - Pulse - - Temperature - - Respiratory Rate - - Oxygen Saturation - - Inhaled Oxygen Concentration - - Weight 64.4 kg (142 lb) 10/23/2022 1236 EST Height 160 cm (5' 3) 11/14/2023 1316 EST Body Mass Index 25.97 10/23/2022 1236 EST Plan of Treatment Not on file Procedures Procedure Name Priority Date/Time Associated Diagnosis Comments HEPATITIS C AB W REFLEX TO HCV RNA BY PCR Routine 01/28/2023 10:30 EDT from Last 3 Months or Most Recently Relevant to Health Maintenance Results * HEPATITIS C AB W REFLEX TO HCV RNA BY PCR (01/28/2023 10:30 EDT) Hep C Antibody Negative Negative 01/29/2023 10:39 EDT [facility] Blood VENOUS BLOOD / Unknown 01/28/2023 10:30 EDT 01/28/2023 21:43 EDT Provider Outr Resulting Lab CHEMISTRY & BLOOD GAS ORDERABLES [facility] [address] [place] [address] from Last 3 Months or Most Recently Relevant to Health Maintenance Tietgens, Cheryl Personal/Family Self 1950 [address] [facility] [place] [address] Tietgens, Cheryl Personal/Family Self 1950 [address] [facility] [place] [address] Tietgens, Cheryl Personal/Family Self 1950 [address] [facility] [place] [address] Tietgens, Cheryl Personal/Family Self 1950 [address] [facility] [place] [address] Care Teams Rolling Down Machine Operator Relationship Specialty Start Date End Date Dar Lester MD [facility] [place] [address] PCP - General 10/23/22
--- OUTSIDE RECORDS SUMMARY | 2024-06-04 14:24 | XMS_ITS | Encounter Summary ---
Author Organization [facility] Address [facility] [place] [address] Care Team Providers Care Professor Of Social Work Name Role Phone Unavailable Primary Care Provider Unavailabl e Reason for Visit * - Closed Specialty Diagnoses / Procedures Referred By Terese sloan Referred To Contact Procedures Film Library- Storage Only DX Shoulder Jean-Paul Enciso MD [address] [place] [address] Referral ID Status Reason Start Date Expiration Date Visits Re quested Visits Authorized [id number] Closed 01/11/2021 01/11/2022 1 1 Encounter Details Date Type Department Care Team (Late st Contact Info) Description 05/27/2018 Ancillary Procedure [place] [address] Jean-Paul Enciso MD [address] [place] [address] Social History Tobacco Use Types Packs/Day Years [...] Procedure Name Priority Date/Time Associated Diagnosis Comments FILM LIBRARY STORAGE ONLY DX SHOULDER Routine 05/27/2018 12:00 AM EDT documented in this encounter Results * Film Library- Storage Only DX Shoulder (05/27/2018 12:00 AM EDT) Narrative SHAMIR BARR - 01/11/2021 7:48 AM EST This exam is auto-finalizing. It's purpose is for storage only. Jean-Paul Enciso MD IMG FILM LIBRARY ORD ERABLES [place], [place] documented in this encounter Visit Diagnoses Not on filedocumented in this encounter
--- OUTSIDE RECORDS SUMMARY | 2024-06-04 14:24 | XMS_ITS | Encounter Summary ---
Author Organization [facility] Address [facility] [place] [address] Care Team Providers Care Physician Pediatrician Name Role Phone Dar Lester MD Primary Care Provider [phone] Reason for Referral * Physical Therapy (Routine) - Specialty Diagnoses / Procedures Referred By Terese sloan Referred To Contact Physical Therapy Diagnoses Glenohumeral arthritis, right Right shoulder pain, unspecified chronicity Reyes Griffiths MD [facility] [place] [address] Referral ID Status Reason Start Date Expiration Date V isits Requested Visits Authorized [id number] Evaluate and Treat 02/02/2021 08/01/2021 12 12 Reason for Visit * Reason Comments Establish Care Right shoulder pain * Consultation (Routine) - Closed Specialty Diagnoses / Procedures Referred By Terese sloan Referred To Contact Orthopaedics Diagnoses Right shoulder pain Self mail [facility] [address] [place] [address] Referral ID Status Reason Start Date Expiration Date Visits Re quested Visits Authorized [id number] Closed 01/10/2021 01/10/2022 1 1 Encounter Details Date Type Department Care Team (Late st Contact Info) Description 02/02/2021 11:00 AM EDT Office [place] [address] Saurav Harry MD [facility] [place] [address] Glenohumeral arthritis, right; Right shoulder pain, unspecified chronicity Social History Tobacco Use Types Packs/Day Years [...] Sign Reading Time Taken Comments Blood Pressure 135/84 02/02/2021 10:16 AM EDT Pulse 70 02/02/2021 10:16 AM EDT Temperature - - Respiratory Rate - - Oxygen Saturation - - Inhaled Oxygen Concentration - - Weight 64 kg (141 lb) 02/02/2021 10:16 AM EDT Height 160 cm (5' 3) 02/02/2021 10:16 AM EDT Body Mass Index 24.98 02/02/2021 10:16 AM EDT documented in this encounter Progress Notes * Reyes Griffiths MD - 02/02/2021 11:00 AM EDT Orthopaedic Surgery Clinic Note PATIENT NAME: Cheryl Farah DATE OF VISIT: 02/02/21 CHIEF COMPLAINT: Chief Complaint Patient presents with ??? Establish Care Right shoulder pain HPI: Cheryl Farah is a 70 y.o. right hand-dominant healthy, active female with history of a right arthroscopic rotator cuff repair (2008, [facility]) who presents to the orthopaedic clinic for evaluation of right shoulder pain. Mrs. Farah recently moved from [place] to [place] and wishes to establish care for her right shoulder. She endorses recovering incredibly well after her rotator cuff repair, regaining her strength and range of motion. She was doing well until 2018 when she developed pain in the right shoulder and had a repeat MRI which she says showed a pea-sized hole in the cuff. She was treated with subacromial injections and PT, resulting in re solution of her pain. She presents today describing return of right shoulder pain that began a few months ago after intense snow shoveling. She was having pain in the front of the shoulder that sometimes radiated to her elbow and kept her awake at night. Since making her appointment, however, her pain has improved significantly. She denies having any weakness and does not feel limited in regards to any of her activities. She denies having any stiffness, tingling, or numbness and denies any recent trauma. She takes acetaminophen only on occasion and has not received any right shoulder injections since 2018. PAST MEDICAL HISTORY: CVA HTN Osteoporosis PAST SURGICAL HISTORY: Right Arthroscopic Rotator Cuff Repair with Biceps Tenodesis (2008) Bilateral Total hip Arthroplasties (Right 2014, Left 2009) FAMILY HISTORY: Family History Problem Relation Age of Onset ??? Diabetes Neg Hx SOCIAL HISTORY: Social History Socioeconomic History ??? Marital status: Spouse name: Not on file ??? Number of children: Not on file ??? Years of education: Not on file ??? Highest education level: Not on file Occupational History ??? Not on file Tobacco Use ??? Smoking status: Former Smoker ??? Smokeless tobacco: Never Used ??? Tobacco comment: 40 years ago Substance and Sexual Activity ??? Alcohol use: Yes Comment: wine ??? Drug use: Never ??? Sexual activity: Not on file Other Topics Concern ??? Not on file Social History Narrative ??? Not on file Social Determinants of Health Financial Resource Strain: ??? Difficulty of Paying Living Expenses: Food Insecurity: ??? Worried About Running Out of Food in the Last Year: ??? Ran Out of Food in the Last Year: Transportation Needs: ??? Lack of Transportation (Medical): ??? Lack of Transportation (Non-Medical): Physical Activity: ??? Days of Exercise per Week: ??? Minutes of Exercise per Session: Stress: ??? Feeling of Stress : Social Connections: ??? Frequency of Communication with Friends and Family: ??? Frequency of Social Gatherings with Friends and Family: ??? Attends [employer] Services: ??? Active Member of Clubs or Organizations: ??? Attends Club or Organization Meetings: ??? Marital Status: Intimate Partner Violence: ??? Fear of Current or Ex-Partner: ??? Emotionally Abused: ??? Physically Abused: ??? Sexually Abused: MEDICATIONS and ALLERGIES: As reviewed in eDH PHYSICAL EXAM: General: Comfortable appearing female sitting in clinic in no acute distress, alert and oriented, answering questions appropriately, pleasant affect. Ambulates with normal gait without the use of assistive devices. CV: Regular rate and rhythm by peripheral palpation. Resp: Normal respiratory effort on room air. Right Upper Extremity: Active range of motion: forward elevation to 180 degrees, internal rotation to level of T7, external rotation to 60 degrees past neutral Subscap lift off negative, [place]'s negative, impingement signs negative, biceps tendon non-tender. Negative Speed's and Yergason's. 5/5 strength with resisted IR, ER, abduction. Sensation intact in axillary, radial, median, and ulnar distributions. 2+ radial pulse, brisk capillary refill distally. IMAGING: Radiographs of the right shoulder obtained today personally reviewed with the patient. There is mild-moderate glenohumeral joint space narrowing with an inferior humeral head osteophyte and calcifications at the cuff insertion on the greater tuberosity. There is slight superior migration of the humeral head on the AP view, consistent with [place] 2. Post-operative acromioplasty changes present. ASSESSMENT and PLAN: Cheryl Farah is a 70 y.o. right hand-dominant healthy, active female whopresents for evaluation of right shoulder pain after intense snow shoveling, now improved, in the setting of mild-moderate glenohumeral osteoarthritis with prior rotator cuff repair in 2008. Given her improvement in her pain, we do not recommend any additional imaging at this time. We discussed conservative therapies and encouraged resuming physical therapy. A prescription for shoulder conditioning and scapular stabilization was given to the patient today. Should Mrs. Farah' pain return, shewas asked to call our office so that we may order an MRI to evaluate her cuff prior to seeing her in clinic. All questions were answered. Mrs. Farah expressed understanding and agreed with the plan. Patient seen and evaluated with Dr. Harry. Reyes Griffiths MD Orthopaedic Surgery, PGY5 Attending Addendum: The preceding portion of this note was written by Dr. Griffiths. I personally saw and evaluated the patient as well and I agree with the assessment and plan documented above. Saurav Harry M.D., M.S. Farm Consultant of Orthopaedic Surgery Shoulder, Elbow, and Sports Medicine Department [place] [address] documented in this encounter Plan of Treatment Scheduled Referrals Name Type Priority Associated Diagnoses Orde r Schedule Referral to Physical Therapy Outpatient Referral Routine Glenohumeral arthritis, right Right shoulder pain, unspecified chronicity Ordered: 02/02/2021 documented as of this encounter Visit Diagnoses Diagnosis Glenohumeral arthritis, right Right shoulder pain, unspecified chronicity documented in this encounter Care Teams Physician Pediatrician Relationship Specialty Start Date End Date Dar Lester MD [address] [place] [address] PCP - General Family Medicine 02/02/21 documented as of this encounter
--- OUTSIDE RECORDS SUMMARY | 2024-06-04 14:24 | XMS_ITS | Clinical Summary ---
Author Organization [facility] Address [facility] [place] [address] Care Team Providers Care Novelty Candy Maker Name Role Phone Dar Lester MD Primary Care Provider [phone] Allergies Active Allergy Reactions Criticality Noted Date Comments Doxycycline 08/24/2020 Puffy eyes Lisinopril 02/02/2021 Other reaction(s): Cough Medications Medication Sig Dispensed Refills Start Date End Date Status amLODIPine (Norvasc) 2.5 mg Tablet Take 2.5 mg by mouth Daily. Active hydroCHLOROthiazide (Hydrodiuril) 25 mg Tablet Take 25 mg by mouth daily. Active calcium-vitamin D3 600 mg(1,500mg) -400 unit Tablet Calcium 600 + D(3) 600 mg (1,500 mg)-400 unit tablet Take by oral route. Active LORazepam (Ativan) 0.5 mg Tablet Take 0.5 mg by mouth as needed. PRN Active amoxicillin (AMOXIL) 500 mg Tablet 1 hour before dental procedures Active multivitamin Capsule multivitamin Active Biotin 10 mg Tablet Take by mouth daily. Active estradioL (ESTRACE) 0.01 % (0.1 mg/gram) Cream estradiol 0.01% (0.1 mg/gram) vaginal cream Active fluticasone propionate (FLONASE) 50 mcg/actuation [place], Suspension fluticasone propionate 50 mcg/actuation nasal spray,suspension Active tacrolimus (PROTOPIC) 0.1 % Ointment tacrolimus 0.1 % topical ointment Active losartan (Cozaar) 25 mg Tablet Take 25 mg by mouth daily. Active Red Yeast Rice Extract 600 mg Capsule Take by mouth. Active cholecalciferol, Vitamin D3, 50 mcg (2,000 unit) Capsule Take by mouth. Active Active Problems Problem Noted Date Diagnosed Date Pain in finger of right hand 08/24/2020 Immunizations Name Administration Dates Next Due Covid-19 (Pfizer), Purple Ca p Monovalent Vaccine (12yrs+) 08/02/2021,01/29/2021,01/01/2021 Family History Medical History Relation Comments Diabetes Neg Hx Social History Tobacco Use Types Packs/Day Years [...] money to buy more. Never true 04/02/20 Within the past 12 months, t he [...] place to sleep or slept in a care home (including now)? No 04/02/2022 Sex and Gender Information Value Date Recorded Sex Assigned at Female 01/31/2021 4:13 PM EDT Gender Identity Female 08/31/2023 10:11 AM EDT Sexual Orientation Straight 01/31/2021 4: 13 PM EDT Last Filed Vital Signs Vital Sign Reading [...] Mass Index 26.2 04/05/2022 12:20 PM EDT Plan of Treatment Health Maintenance Due Date Last Done Comments CT Colonography 1952 Colonoscopy 1950 Colorectal Cancer Screening 1950 FIT DNA 1950 FIT 1950 Sigmoidoscopy (10 year) with FIT yearly 1950 Sigmoidoscopy 1950 Hepatitis C Screening 1970 Tdap adult 1971 Tetanus vaccine 1971 Breast Cancer Share Decision Needed 1992 Breast Cancer screening 1992 Zoster vaccine (1 of 2) 2002 Advance Directive 2007 Bone Density Scan 2017 Pneumoccocal Vaccine: 65+ (1 of 1 - PCV) 2017 Covid-19 Vaccine (4 - season) 2023 08/02/2021, 01/29/2021, 01/01/2021 Influenza (Flu) vaccine (1 o f 1 - Influenza standard series) 07/04/2024 Care Teams Novelty Candy Maker Relationship Specialty Start Date End Date Raser, Dar, MD [address] [place] [id number] PCP - General Family Medicine 02/02/21
--- OUTSIDE RECORDS SUMMARY | 2024-06-04 14:24 | XMS_ITS | Encounter Summary ---
Author Organization [facility] Address [facility] [place] [address] Care Team Providers Care Corporate Counsel Name Role Phone Jean-Paul Enciso MD Primary Care Provider [phone] Encounter Details Date Type Department Care Team (Latest Contact Info) Description 08/24/2020 1:46 PM EDT - 08/24/2020 11:59 PM EDT Hospital Encounter XRay at [address] [place] [address] Marck Delgado MD [facility] [place] [address] Bilateral hand pain; Right hand pain Discharge Disposition: Home Social History Tobacco Use [...] Sig Dispensed Refills Start Date End Date amLODIPine (Norvasc) 2.5 mg Tablet Take 2.5 [...] Cream estradiol 0.01% (0.1 mg/gram) vaginal cream aspirin EC 81 mg Tablet, Delayed Release (E.C.) Take 81 mg by mouth Daily. 04/07/2022 documented as of this encounter Plan of Treatment Scheduled Orders Name Type Priority Associated Diagnoses Orde r Schedule XR Hand Min 3 views Bilat (Generic) Imaging Routine Bilateral hand pain 1 Occurrences starting 08/24/2020 until 08/24/2020 documented as of this encounter Procedures Procedure Name Priority Date/Time Associated Diagnosis Comments XR HAND MIN 3 VIEWS RIGHT Routine 08/24/2020 2:17 PM EDT Right hand pain documented in this encounter Results * XR Hand Min [...] limb documented in this encounter Care Teams Corporate Counsel Relationship Specialty Start Date End Date Jean-Paul Enciso MD [facility] [place] [address] [place] [address] PCP - General General Internal Medicine 08/24/2002/01 documented as of this encounter
--- OUTSIDE RECORDS SUMMARY | 2024-06-04 14:24 | XMS_ITS | Encounter Summary ---
Author Organization [facility] Address [address] [place] [address] Care Team Providers Care Drafter Chief Design Name Role Phone Dar Lester MD Primary Care Provider Encounter Details Date Type Department Care Team (Late st Contact Info) Description 01/28/2023 Lab Requisition [facility] Pathology & Laboratory Medicine - [address] [id number] Outr Resulting Lab, Provider Social History Tobacco Use Types Packs/Day Years Used Date Smoking Tobacco: Never Assessed Sex and Gender Information Value Date Recorded Sex Assigned at Not on file Gender Identity Not on file Sexual Orientation Not on file documented as of this encounter Plan of Treatment Not on file documented as of this encounter Procedures Procedure Name Priority Date/Time Associated Diagnosis Comments HEPATITIS C AB W REFLEX TO HCV RNA BY PCR Routine 01/28/2023 10:30 EDT documented in this encounter Results * HEPATITIS C AB W REFLEX TO HCV RNA BY PCR (01/28/2023 10:30 EDT) Hep C Antibody Negative Negative 01/29/2023 10:39 EDT [facility] Blood VENOUS BLOOD / Unknown 01/28/2023 10:30 EDT 01/28/2023 21:43 EDT Provider Outr Resulting Lab CHEMISTRY & BLOOD GAS ORDERABLES [facility] [address] [place] [address] documented in this encounter Visit Diagnoses Not on filedocumented in this encounter Care Teams Drafter Chief Design Relationship Specialty Start Date End Date Dar Lester MD [address] [place] [address] PCP - General 10/23/22 documented as of this encounter
--- OUTSIDE RECORDS SUMMARY | 2024-06-04 14:24 | XMS_ITS | Encounter Summary ---
Author Organization [facility] Address [facility] [place] [address] Care Team Providers Care Salesperson Stereo Equipment Name Role Phone Jean-Paul Enciso MD Primary Care Provider [phone] Reason for Visit * Reason Comments Right Finger Pain right index finger p ain * Consultation (Routine) - Closed Specialty Diagnoses / Procedures Referred By Contac t Referred To Contact Orthopaedics Diagnoses BILAT HAND/JOINT PAIN Self mail [facility] [address] [place] [address] Referral ID Status Reason Start Date Expiration Date V isits Requested Visits Authorized [id number] Closed Consult, Test & Treat 08/11/2020 08/11/2021 1 1 Encounter Details Date Type Department Care Team (Late st Contact Info) Description 08/24/2020 3:00 PM EDT Office [place] [address] Kelley Cardenas PA [facility] [place] [address] Pain in finger of right hand Social History Tobacco Use Types Packs/Day Years [...] Sign Reading Time Taken Comments Blood Pressure 154/93 08/24/2020 2:52 PM EDT Pulse 68 08/24/2020 2:52 PM EDT Temperature - - Respiratory Rate - - Oxygen Saturation - - Inhaled Oxygen Concentration - - Weight 63 kg (138 lb 14.4 oz) 08/24/2020 2:52 PM EDT measured Height 156 cm (5' 1.42) 08/24/2020 2:52 PM EDT measured Body Mass Index 25.89 08/24/2020 2:52 PM EDT documented in this encounter Progress Notes * Kelley Matthews PA - 08/24/2020 3:00 PM EDT PATIENT NAME: Cheryl Farah AGE: 69 y.o. MR#: [id number] DATE OF VISIT: 08/24/2020 DATE OF ONSET: 6 months - 1 year CHIEF COMPLAINT: Right index finger pain HISTORY OF PRESENT ILLNESS: Ms. Farah is a right hand dominant 69 y.o. female who comes into clinic today for evaluation of the right index finger. The patient has a history significant for osteoarthritis in other joints. She reports approximately 1 year of fluctuating right index finger MCP joint pain that is associated with swelling and redness. She rates the pain at 0/10 with rest, Aspercreme, Aleve PRN with good relief. She notes an increase to 8/10 pain with increased use, gripping or twisting. She denies any previous injury, numbness or tingling. Medications and Allergies were reviewed in eD-H PAST MEDICAL HX: History reviewed. No pertinent past medical history. PAST SURGICAL HX: History reviewed. No pertinent surgical history. FAMILY HX: Family History Problem Relation Age of Onset ??? Diabetes Neg Hx SOCIAL HX: Social History Occupational History ??? Not on file Tobacco Use ??? Smoking status: Former Smoker ??? Smokeless tobacco: Never Used ??? Tobacco comment: 40 years ago Substance and Sexual Activity ??? Alcohol use: Yes Comment: wine ??? Drug use: Never ??? Sexual activity: Not on file Activities: gardening, cooking ROS: Constitutional: Denies fevers, chills Respiratory: Denies shortness of breath, cough Cardiac: Denies chest pain, palpitations GI: denies abdominal pain, nausea, vomiting Skin: Denies new rashes or lesions Neuro: no numbness, tingling, or weakness Musculoskeletal: as above in HPI PHYSICAL EXAM: Ms. Farah is a 69 y.o. female General appearance: in no acute distress, alert, cooperative Psych: cooperative with exam, appropriate Head: normocephalic, atraumatic EENT: EOMI grossly intact Neck: supple, trachea midline Cardiac: regular rate and rhythm by peripheral pulse Lungs: non-labored respirations Musculoskeletal: RUE ??? Inspection: Mild edema of the right index finger MCP joint. No erythema, abrasions, ecchymosis. ??? Palpation: TTP over MCP joint dorsum ??? ROM/Strength: Full ROM elbow, forearm, wrist, digits 1-5 ??? Orthopedic testing: No laxity with varus and valgus stress of the index finger MCP joint. ??? Neurovascular: SGILT R/M/U/Ax nerve distributions; AIN/PIN/U nerves fire; 2+ radial pulse DIAGNOSTIC STUDIES: 3 view x-rays of the right hand were personally reviewed and demonstrate diffuse mild arthritic changes including joint space narrowing at the DIP joints, first MCP joint, and at the first CMC joint. ASSESSMENT: Right index finger MCP joint pain most likely OA, although cannot discount gout given patient report of intermittent erythema PLAN: - Uric acid was ordered at the lab on the patient's way out of her appointment at clinic today. I will call her with her results. - The patient was counseled on OA management including conservative options of hand therapy, splinting, topical gels including CBD and Diclofenac as well as more invasive surgical options including joint fusion and implant arthroplasty. The patient would like to try the Diclofenac gel to start. - She will return for follow up PRN - The patient understands to contact us if they have any other questions or concerns. Kelley Matthews PA-C Department of Orthopaedics [facility] Pager: documented in this encounter Miscellaneous Notes * Addendum Note - Kylee Mora - 08/24/2020 3:00 PM EDTAddended by: KYLEE MORA on: 08/24/2020 03:40 PM Modules accepted: Orders documented in this encounter Plan of Treatment Not on file documented as of this encounter Procedures Procedure Name Priority Date/Time Associated Diagnosis Comments HC VENIPUNCTURE Routine 08/24/2020 3:49 PM EDT Pain in finger of right hand documented in this encounter Results * Uric acid (08/24/2020 3:49 PM EDT) Uric Acid 3.8 2.5 - 6.5 mg/dL [facility] Blood specimen (specimen) 08/24/2020 3:49 PM EDT 08/24/2020 4:09 PM EDT Narrative Resulting Agency Comment Spec In Lab Marck Delgado MD CHEMISTRY ORDERABLES Performing Organization Address City/State/[facility] Co de Phone Number [facility] [place] [address] documented in this encounter Visit Diagnoses Diagnosis Pain in finger of right hand Pain in limb documented in this encounter Care Teams Salesperson Stereo Equipment Relationship Specialty Start Date End Date Jean-Paul Enciso MD [facility] [address] [place] [address] PCP - General General Internal Medicine 08/24/2002/01 documented as of this encounter
--- OUTSIDE RECORDS SUMMARY | 2024-06-04 14:24 | XMS_ITS | Encounter Summary ---
Author Organization [facility] Address [address] [place] [address] Care Team Providers Care Senior Escrow Officer Name Role Phone Dar Lester MD Primary Care Provider [phone] Encounter Details Date Type Department Care Team (Late st Contact Info) Description 08/19/2023 Lab Requisition [facility] Pathology & Laboratory Medicine - [address] [id number] Outr Resulting Lab, Provider Social History Tobacco [...] Procedure Name Priority Date/Time Associated Diagnosis Comments PTH INTACT Routine 08/19/2023 13:55 EDT documented in this encounter Results * PTH INTACT (08/19/2023 13:55 EDT) Intact PTH 40 19 - 88 pg/mL 08/19/2023 22:50 EDT [facility] Blood VENOUS BLOOD / Unknown 08/19/2023 13:55 EDT 08/19/2023 21:25 EDT Provider Outr Resulting Lab CHEMISTRY & BLOOD GAS ORDERABLES [facility] [address] [place] [address] documented in this encounter Visit Diagnoses Not on filedocumented in this encounter Care Teams Senior Escrow Officer Relationship Specialty Start Date End Date Dar [place] [address] PCP - General 10/23/22 documented as of this encounter
--- OUTSIDE RECORDS SUMMARY | 2024-06-04 14:24 | XMS_ITS | Encounter Summary ---
Author Organization [facility] Address [facility] [place] [address] Care Team Providers Care Equity Structurer Name Role Phone Dar Lester MD Primary Care Provider [phone] Encounter Details Date Type Department Care Team (Latest Contact Info) Description 02/02/2021 9:30 AM EDT - 02/02/2021 11:59 PM EDT Hospital Encounter XRay at [address] [place] [address] Saurav Harry MD [facility] [place] [address] Chronic right shoulder pain Discharge Disposition: Home Social History Tobacco [...] Sig Dispensed Refills Start Date End Date fluticasone propionate (FLONASE) 50 mcg/actuation [place], Suspension fluticasone propionate 50 mcg/actuation nasal spray,suspension [...] 0.01% (0.1 mg/gram) vaginal cream HYDROcodone-acetamino phen ([place]) 5-325 mg Tablet hydrocodone 5 mg-acetaminophen 325 [...] Name Priority Date/Time Associated Diagnosis Comments XR SHOULDER RIGHT Routine 02/02/2021 9:4 3 AM EDT Chronic right shoulder pain documented in this encounter Results * XR Shoulder Right (Generic) (02/02/2021 9:43 AM EDT) Anatomical Region Laterality Modality Shoulder Right Digital Radiogra phy Impressions 02/02/2021 10:18 AM EDT 1. Calcific rotator cuff tendinopathy. 2. Mild arthropathy of the glenohumeral joint. Thank you for letting us participate in the care of this patient. ??If you are a health care provider and have any questions regarding this report, please contact the number below. ??For patients who have questions please contact the health animal caretaker that requested your imaging first. ? Electronically signed by: Lavinia Oscar MD, [facility] ([phone]), at 02/02/2021 10:18 AM Narrative 02/02/2021 10:18 AM EDT EXAMINATION: XR SHOULDER RIGHT (GENERIC) CLINICAL HISTORY: Chronic right shoulder pain TECHNIQUE: 4 views RIGHT shoulder COMPARISON: None FINDINGS: There is no fracture, dislocation or evidence of osteonecrosis. Small calcification overlies the footprint of the rotator cuff. There is mild narrowing of the glenohumeral joint, with small spur at the inferomedial glenoid. Postsurgical appearance of the acromial clavicular joint. Procedure Note Lavinia Oscar MD - 02/02/2021 EXAMINATION: XR SHOULDER RIGHT (GENERIC) CLINICAL HISTORY: Chronic right shoulder pain TECHNIQUE: 4 views RIGHT shoulder COMPARISON: None FINDINGS: There is no fracture, dislocation or evidence of osteonecrosis. Small calcification overlies the footprint of the rotator cuff. There is mild narrowing of the glenohumeral joint, with small spur at the inferomedial glenoid. Postsurgical appearance of the acromial clavicular joint. IMPRESSION 1. Calcific rotator cuff tendinopathy. 2. Mild arthropathy of the glenohumeral joint. Thank you for letting us participate in the care of this patient. If youare a health care provider and have any questions regarding this report,please contact the number below. For patients who have questions please contactthe health animal caretaker that requested your imaging first. Electronically signed by: Lavinia Oscar MD, [facility]([phone]), at 02/02/2021 10:18 AM Saurav Harry MD IMG DX ORDERABLES documented in this encounter Visit Diagnoses Diagnosis Chronic right shoulder pain Pain in joint, shoulder region documented in this encounter Care Teams Equity Structurer Relationship Specialty Start Date End Date Dar Lester MD [address] [place] [address] [place] [address] PCP - General Family Medicine 02/02/21 documented as of this encounter
--- OUTSIDE RECORDS SUMMARY | 2024-06-04 14:24 | XMS_ITS | Encounter Summary ---
Author Organization [facility] Address [address] [place] [address] Care Team Providers Care Learning Support Aide Name Role Phone Dar Lester MD Primary Care Provider [phone] Reason for Referral * Radiology Services (Routine/Next Available) - Authorization Not Required Specialty Diagnoses / Procedures Referred By Contac t Referred To Contact Diagnoses Encounter for screening mammogram for malignant neoplasm of breast Procedures MA BREAST SCREENING KIMBER BILATERAL Irina Biswas FNP [address] [place] [address] [facility] Referral ID Status Reason Start Date Expiration Date Visits Requested Visits Authorized [id number] Authorization Not Required 3 1 1 Reason for Visit * Radiology Services (Routine/Next Available) - Authorization Not Required Specialty Diagnoses / Procedures Referred By Contac t Referred To Contact Diagnoses Encounter for screening mammogram for malignant neoplasm of breast Procedures MA BREAST SCREENING KIMBER BILATERAL Irina Biswas FNP [address] [place] [address] [facility] Referral ID Status Reason Start Date Expiration Date Visits Requested Visits Authorized [id number] Authorization Not Required 3 1 1 Encounter Details Date Type Department Care Team (Latest Contact Info) Description 11/14/2023 12:53 EST - 11/14/2023 23:59 EST Hospital Encounter [facility] Mammography [address] [place] [address] Encounter for screening mammogram for malignant neoplasm of breast Discharge Disposition: Home or Self Care Social [...] - Inhaled Oxygen Concentration - - Weight - - Height 160 cm (5' 3) 11/14/2023 1316 EST Body Mass Index - - documented in this encounter Discharge Disposition Disposition Code Departure Means Destination Home or Self Care documented in this encounter Plan of Treatment Not on file documented as of this encounter Procedures Procedure Name Priority Date/Time Associated Diagnosis Comments MA BREAST SCREENING KIMBER BILATERAL Routine 11/14/2023 13:17 EST Encounter for screening mammogram for malignant neoplasm of breast documented in this encounter Results * MA BREAST SCREENING KIMBER BILATERAL (11/14/2023 13:17 EST) Anatomical Region Laterality Modality Breast Bilateral Mammography 11/19/2023 20:1 0 EST Impressions 11/19/2023 20:10 EST Negative, no evidence of malignancy. RECOMMENDATION: Routine screening mammography is recommended. OVERALL ASSESSMENT: BI-RADS 1: Negative These results will be communicated to your patient via a lay letter from Radiology. If any additional imaging is needed we will contact your patient directly. [id number] Narrative 11/19/2023 20:10 EST MA BREAST SCREENING KIMBER BILATERAL ??11/14/2023 1:02 PM History: SCREENING;Z12.31:Encounter for screening mammogram for malignant neoplasm of breast Comparison: ??Comparison has been made to previous images . ? Technique: Routine 3D tomosynthesis with synthesized 2D views with CAD Breast Composition: The breast tissue is heterogeneously dense, which may obscure small masses. Bilateral Breast Findings: ??No significant masses, calcifications or other abnormalities are seen. Procedure Note Felipe Castaneda MD - 11/19/2023 MA BREAST SCREENING KIMBER BILATERAL 11/14/2023 1:02 PM History: SCREENING;Z12.31:Encounter for screening mammogram for malignantneoplasm of breast Comparison: Comparison has been made to previous images . Technique: Routine 3D tomosynthesis with synthesized 2D views with CAD Breast Composition: The breast tissue is heterogeneously dense, which mayobscure small masses. Bilateral Breast Findings: No significant masses, calcifications or otherabnormalities are seen. IMPRESSION Negative, no evidence of malignancy. RECOMMENDATION: Routine screening mammography is recommended. OVERALL ASSESSMENT: BI-RADS 1: Negative These results will be communicated to your patient via a lay letter fromRadiology. If any additional imaging is needed we will contact yourpatient directly. [id number] Irina Biswas FELT COVERER IMG MAMMOGRAPHY HEDY ESCALANTE documented in this encounter Visit Diagnoses Diagnosis Encounter for screening mammogram for malignant neoplasm of breast Other screening mammogram documented in this encounter Care Teams Learning Support Aide Relationship Specialty Start Date End Date Dar Lester MD [address] [place] [address] PCP - General 10/23/22 documented as of this encounter
--- OUTSIDE RECORDS SUMMARY | 2024-06-04 14:24 | XMS_ITS | Clinical Summary ---
Author Organization [facility] Address [address] [place] [address] Care Team Providers Care Consulting Networking Engineer Name Role Phone Dar Lester MD Primary Care Provider [phone] Allergies No known active allergies Family History Medical History Relation Comments Ovarian Cancer Paternal Aunt Relation Status Comments Paternal Aunt Social History Tobacco Use Types Packs/Day Years Used Date Smoking Tobacco: Never Assessed Sex and Gender Information Value Date Recorded Sex Assigned at Not on file Gender Identity Not on file Sexual Orientation Not on file Obstetrics History Para Term AB IAB SAB Ectopic Multiple Livin g Live Births 1 1 Date Outcome GA Total Labor Labor/2nd/3rd Weight Sex Type Anes PTL Cher A1 A5 Name Clin Para Last Filed Vital Signs Vital Sign Reading Time Taken Comments Blood Pressure - - Pulse - - Temperature - - Respiratory Rate - - Oxygen Saturation - - Inhaled Oxygen Concentration - - Weight 64.4 kg (142 lb) 10/23/2022 1236 EST Height 160 cm (5' 3) 11/14/2023 1316 EST Body Mass Index 25.97 10/23/2022 1236 EST Plan of Treatment Health Maintenance Due Date Last Done Comments RSV Immunization ( o r 60+ Years) (1 - 1-dose 60+ series) 2012 Fall Risk Screening 2017 COVID-19 Vaccine ( season) 2023 08/02/2021, 01/29/2021, 01/01/2021 Hepatitis C Screen Completed 01/28/2023 Procedures Procedure Name Priority Date/Time Associated Diagnosis Comments HEPATITIS C AB W REFLEX TO HCV RNA BY PCR Routine 01/28/2023 10:30 EDT from Last 3 Months or Most Recently Relevant to Health Maintenance Results * HEPATITIS C AB W REFLEX TO HCV RNA BY PCR (01/28/2023 10:30 EDT) Hep C Antibody Negative Negative 01/29/2023 10:[address] [facility] Blood VENOUS BLOOD / Unknown 01/28/2023 10:30 EDT 01/28/2023 21:43 EDT Provider Outr Resulting Lab CHEMISTRY & BLOOD GAS ORDERABLES [facility] [address] [place] [address] from Last 3 Months or Most Recently Relevant to Health Maintenance Care Teams Consulting Networking Engineer Relationship Specialty Start Date End Date Dar Lester MD [facility] [place] [address] PCP - General 10/23/22
--- OUTSIDE RECORDS SUMMARY | 2024-06-04 14:25 | XMS_ITS | Continuity of Care Document ---
Author Organization [facility] [place] [address] Care Team Providers Care Commercial Real Estate Underwriter Name Role Phone Unavailable Dentist [facility] [employer] RONIT DILLON Operations Executive Assessment No assessment recorded. Plan of Treatment Reminders Order Date Submit Date Provider Last Modified By Organization Details Last Modified Time Details Appointments Acute 30 2023 11:30A M IRINA BISWAS Not available Not available Not available Follow Up 2023 12:30P Bernadette BISWAS Not available Not available Not available Lab None recorded. Referral None recorded. Procedures None recorded. Surgeries None recorded. Imaging None recorded. Medication Orders amlodipin e 5 mg tablet 2023 024 [facility], [address] [place], [address], 03/10/2024 14:42:02 hydrochlo rothiazid e 25 mg tablet 2023 024 [facility], [address] [place], [address], 03/10/2024 14:42:02 Patient TargetsNo targets recorded. Patient Instructions Encounter Date Encounter Id Patient Instructions Last Modified By Organization Details Last Modified Time 03/10/2024 [id number] nice to see you today! Your annual exam was normal You would be due for labs/recheck in in August will recheck your cholesterol, check cbc, metabolic panel and thyroid mammogram next due 11/2024 no longer need paps colonoscopy next due 2027 dexa scan you have declined further screenings at this time try stopping the red yeast rice and see if joint aches get better refills for your meds provided [email or web address] Not available 03/10/2024 14:41:42 Reason for Referral None Reported. Results Created Date Observation Date Name Description Value Unit Range Abnormal Flag LastModifiedBy Organization Detail LastModifiedTime 06/04/20 24 06/04/2024 XR, cervi ankit spine , 4 or 5 view No observ ation record ed. [facility] Not Available 06/04/2024 14:03:13 06/04/20 24 06/04/2024 x-ray imagi ng repor t Patien t Name: Cal ontiveros,Barbra Pantoja Unit #: [id number] Loc: DI Orderi ng Provid er: Irina Biswas Accelvin t #: [id number] Status : PRE CLI Primar y Care Provid er: Date of Exam: Sex: F Admiss ion Date: : 1949 Age: 73 Exam(s ) XR CERVIC AL SPINE COMP 4-5V EXAM: XR CERVIC AL SPINE COMP 4-5V CLINIC AL HISTOR Y: M54.12 Cervic al radicu lopath y. TECHNI QUE: 2D digita l imagin g was perfor med. Five views were perfor med. COMPAR ALEISHA: No exams were availa ble for compar aleisha FINDIN GS: BONES: No fractu re or destru ctive lesion . Verteb ral bodies are unrema rkable . Promin ent facet joint degene rative change s throug hout. Severe degene rative change s also presen t at C1-2. DISKS: Mild narrow ing of the C4-5 disc space. Promin ent endpla te osteop hytes. Modera te narrow ing of the C5-6 disc space with promin ent endpla te osteop hytes. Bilate ral neural forami nal narrow ing at these levels . ALIGNM ENT: Cervic al spinal alignm ent is within normal limits . SOFT TISSUE : Normal . The lung apices are clear. IMPRES BRIONNA: Severe degene rative change s at C1-2. Bilate ral neural forami nal narrow ing at C4-5 and C5-6 very to combin ation of sujit bro change s. DATA REPOSI TORY: RADIAT ION DOSE DELIVE RED: Ordere d By: Irina Biswas CC: ------ ------ ------ ------ ------ ------ ------ ------ ------ ------ ------ ------ - Dictat ed By: Debbie Gaffney 1400 1400 Transc ribed By: Rohan Parrish 1400 This is privil eged, confid ential inform ation intend ed only for the provid er named. Any use or distri bution by any person other than this provid er is strict ly prohib ited. If you receiv e this report in error, please notify us immedi lindsayly at [phone] and return the origin al report to us at the addres s above. Thank- you. INTERFACE [address] [place], [address] 06/04/2024 14:13:20 06/04/20 24 06/04/2024 XR, cervi ankit spine , 4 or 5 view No observ ation record ed. [facility] (Radiology) [address] [place] [address] [place], [address], 06/04/2024 14:21:57 Result Notes None recorded. Problems Name Status Onset Date Resolution Date Notes Provider Name and Address Organization Details Recorded Time Anxiety disorder Active 2020 Bulmaro andrews [place] - [facility], [facility]. 4 19:33:15 Leukopenia Active 2020 Bulmaro andrew[place] - [facility], [facility]. 4 19:33:42 Allergic rhinitis Active 2020 Bulmaro andrews [facility] 4 19:33:10 Idiopathic osteoarthriti s Active 2020 [facility] 4 19:33:35 Bone density finding Completed 202003/03/2024 Problem Code: M85.80; Problem Code Type: ICD-10; [facility] 4 19:35:04 Essential hypertension Active 2020 [facility] 4 19:33:26 History of polyp of colon Active 2020 Bilateral, s/p hip replacements [facility] 4 19:34:57 Adult health examination Completed 202008/19/2023 Problem Code: Z00.00; Problem Code Type: ICD-10; Not Available [facility] 4 05:36:13 Hyperlipidemi a Active 2020 [facility] 4 19:33:30 Secondary polycythemia Completed 202108/19/2023 Problem Code: D75.1; Problem Code Type: ICD-10; Not Available [facility] 4 05:36:14 Clonic hemifacial spasm Active 2022 [facility] 4 19:33:20 Pain of left hip joint Completed 202007/30/2023 Problem Code: M25.552; Problem Code Type: ICD-10; Not Available [facility] 3 05:18:03 Chronic sinusitis Completed 202001/04/2021 Problem Code: J32.9; Problem Code Type: ICD-10; Not Available [facility] 3 05:18:03 Counseling Completed 202209/18/2023 08/28/2023 - Comments only - Irina Biswas NP - Now established on my panel. She will follow-up in 6 months, sooner if concerns. Chronic conditions reviewed as well as consult notes and recent labs. Orders placed appropriately . Problem Code: Z71.89; Problem Code Type: ICD-10; Not Available [facility] 4 05:36:12 Screening for malignant neoplasm of breast Active 2022 Bulmaro Collazo [facility] 4 19:33:47 Hemifacial spasm Completed 202208/19/2023 Problem Code: G51.39; Problem Code Type: ICD-10; Not Available [facility] 4 05:36:13 Osteopenia Active 2020 Bulmaro Collazo [facility] 4 19:35:22 Cervical radiculopathy Active [address], [place] [id number] [place] [address] 4 12:32:00 Lesion of greater occipital nerve Active [address], [facility] [id number] 4 12:32:50 Tenderness of head and neck region Active [address], [facility] [id number] [place] [address] 4 12:34:11 Problem Notes None recorded. Procedures Surgical History Date Name Laterality Status Provider Name and Address Organization Details Recorded Time 4 Most Recent Mammogram completed PRANAV VALDEZ, [facility] 03/10/2024 13:43:25 1 Date of Last Colonoscopy completed PRANAV VALDEZ, [facility] 03/10/2024 13:43:39 9 Most Recent Bone Density completed PRANAV VALDEZ, [facility] 03/10/2024 13:43:54 Imaging Results None recorded. Procedure Notes None recorded. Medical Equipment None Reported. Allergies Allergen ID Allergen Name Allergen Category Reaction Reaction Severity Criticality Documentation Date Start Date Code Code System Note Provider Name and Address Organization Details Recorded Time 81430 doxycycli ne monohydra te medicatio n other Not available Not available 09/12/20232020 2 RxNorm Puffy Eyes SAUL PALACIO RN null, [place] - [facility]. 13:35:05 Medications Name Sig Start Date Stop Date Status Note LastModified by Organization Details LastModified Time amoxicillin 500 mg capsule TAKE FOUR CAPSULES BY MOUTH ONE HOUR BEFORE APPOINTME NT 03/10 completed Not Available Not Available Not Available biotin 5 mg capsule Take 1 capsule by mouth once a day 2020 active Not Available Not Available Not Avai lable clonazepam 0.5 mg tablet Take 1 tablet by mouth twice a day spasm/anx iety/stre ss for 7 days then decrease to once nightly for 7 days then call office if needing longer RX active ok to take 2 if 0.5mg not worki ng, she'l l let me know Not Available Not Available Not Available amlodipine 2.5 mg-benazepr il 10 mg capsule Take 1 tab by mouth daily 2020 active Not Available Not Available Not Avai lable amlodipine 5 mg tablet Take 1 tablet by mouth once daily active Not Available Not Available No t Available aspirin 81 mg tablet,ida yed release qd 01/04 completed Not Available Not Available Not Available amoxicillin 500 mg tablet Take 4 tablet by mouth 08/19 completed Not Available Not Available Not Available lorazepam 0.5 mg tablet uses very sparingly 2023 active ON HOLD Not Available Not Available Not Available amlodipine 5 mg-benazepr il 20 mg capsule Take 1 tab by mouth qhs for blood pressure 2020 active Not Available Not Available Not Avai lable triamcinolo ne acetonide 0.1 % topical ointment APPLY OINTMENT TOPICALLY TO AFFECTED AREA TWICE DAILY TO RIGHT LEG NEEDED active Not Available Not Available No t Available tacrolimus 0.03 % topical ointment Apply to red spot on forehead daily 2020 active Not Available Not Available Not Avai lable losartan 25 mg tablet TAKE ONE TABLET BY MOUTH AT BEDTIME active Not Available Not Available No t Available hydrochloro thiazide 25 mg tablet Take 1 tablet by mouth once daily active Not Available Not Available No t Available estradiol 0.01% (0.1 mg/gram) vaginal cream APPLY A PEA SIZED AMOUNT TO OUTER PORTION OF THE VAGINA ONCE WEEKLY 2023 active Not Available Not Available Not Avai lable cholecalcif robbin (vitamin D3) 25 mcg (1,000 unit) capsule Take 1 capsule once a day 2020 active Not Available Not Available Not Avai lable Vitamin D3 25 mcg (1,000 unit) tablet take 1 capsule daily 2020 active Not Available Not Available Not Avai lable multivitami n 1 tab a day 2020 active Not Available Not Available Not Avai lable red yeast rice 600 mg capsule Take 1 capsule every day by oral route. 06/04 completed Not Available Not Available Not Available cholecalcif robbin (vitamin D3) 50 mcg (2,000 unit) capsule Take 1 capsule once a day 2020 active Not Available Not Available Not Avai lable Calcium 600 with Vitamin D3 600 mg-12.5 mcg (500 unit) capsule Take 1 tablet by mouth twice a day 2020 active Not Available Not Available Not Avai lable Flonase Allergy Relief 50 mcg/actuati on nasal spray,suspe nsion 1 spray once a day 2020 active Not Available Not Available Not Avai lable Alive Calcium-Vit oshea D3 600mg takes BID active Not Available Not Available No t Available Vitals Date Recorded Body height Body mass index (BMI) Body weight Body temperature Heart rate Respiratory rate Systolic blood pressure Diastolic blood pressure Provider Name and Address Organization Details Last Updated DateTime 4 157.48 cm 26 kg/m2 19810.1 2 g 98.4 [degF] 72 /min 16 /min 136 mm[Hg] 82 mm[Hg] SAUL PALACIO RN [facility] 13:53:07 Social History Question Answer Notes LastModified by Organizat ion Details LastModified Time Tobacco Smoking Status Former Smoker Quit 1974 SAUL PALACIO RN [facility], [facility] 03/10/2024 13:44:31 Do You Have An Advance Directive? No Would Like Information ; Referred To Residential Sales Representative At Check-out Information not available 03/10/2024 What Type Of Diet Are You Following? REGULAR Information n ot available 03/10/2024 How Many Times Per Week Do You Exercise? 5-7 Times Per Week Aerobics, Biking, Walking Information not available 03/10/2024 When Did You Quit Smoking? 16+yearssin jaylene rdz Information not available 06/04/2024 Would You Say That, In General, Your Health Is Very Good Information not available 03/10/2024 How Often Does Anyone, Including Family, Physically Hurt You? Never Information not available 03/10/2024 How Often Does Anyone, Including Family, Insult Or Talk Down To You? Never Information no t available 03/10/2024 How Often Does Anyone, Including Family, Threaten You With Harm? Never Information not available 03/10/2024 How Often Does Anyone, Including Family, Scream Or Curse At You? Never Information not available 03/10/2024 Within The Past 12 Months, You Worried That Your Food Would Run Out Before You Got Money To Buy More. Never True Information n ot available 03/10/2024 Within The Past 12 Months, The Food You Bought Just Didn't Last And You Didn't Have Money To Get More. Never True Information n ot available 03/10/2024 How Hard Is It For You To Pay For The Very Basics Like Food, Housing, Medical Care, And Heating? Would You Say It Is: Not Hard At All Information not available 03/10/2024 In The Past 12 Months, Has Lack Of Reliable Transportation Kept You From Medical Appointments, Meetings, Work Or From Getting Things Needed For Daily Living? No Information not available 03/10/2024 What Is Your Housing Situation Today? I Have Housing. Information not available 03/10/2024 How Often In The Past Year Have You Used Marijuana (including Smoking, Vaping, Dabbing, Or Edibles)? Never Information not available 03/10/2024 How Often In The Past Year Have You Used Prescription Medications That Were Not Prescribed To You? Never Information n ot available 03/10/2024 How Often In The Past Year Have You Taken Your Own Prescription Medication More Than The Way It Was Prescribed Or For Different Reasons Than Its Intended Purpose? Never Information no t available 03/10/2024 How Often In The Past Year Have You Used Other Drugs (for Example, Heroin, Cocaine, Meth, Salvia, Inhalants)? Never Information not available 03/10/2024 Have You Ever Used IV Drugs? No Information not available 03/10/2024 Date Of Most Recent SBINS 03/10/2024 Information not available 03/10/2024 What Was The Date Of Your Most Recent Tobacco Screening? 06/04/2024 Information not available 06/04/2024 Do You Have Any Dietary Restrictions? No Information not available 03/10/2024 Do You Or Have You Ever Used Any Other Forms Of Tobacco Or Nicotine? No Information not available 06/04/2024 Sex: Female Functional Status Question Answer Note LastModified by Organization D etails LastModified Time What is your exercise level? Moderate Information not available 03/10/2024 Mental Status None recorded. Family History Relationship Description Onset Age of this Age Resolved Age Notes Father Family history of he art failure Notes:*Problem: Mother-Osteo porosis,dementia, HTN, passed Father-Conronary arteriosclerosis, HTN,CVA passed sister HTN brothers times two both healthy Medical History No medical history recorded. Gynecological History Statement/Question Response Date of Last Pap Smear Date of Last Colonoscopy 01/25/2021 Most Recent Mammogram 11/14/2023 Most Recent Bone Density 04/06/2019 Obstetrics History GPAL:G 0 P 0 0 0 0 Immunizations Vaccine Type Date Status Provider Name and Address Organization Details Recorded Time DTaP, unspecified formulation 12/14/2016 completed Not Available [facility] 09/12/2023 05:32:34 pneumococcal, unspecified formulation 09/16/2017 completed Not Available [facility] 09/12/2023 05:32:35 Tdap 12/14/2016 completed Not Available [facility] 05:32:35 zoster live 01/09/2017 completed Not Available [facility] 09/12/2023 05:32:35 zoster live 03/23/2018 completed Not Available [facility] 09/12/2023 05:32:35 zoster live 06/02/2018 completed Not Available [facility] 09/12/2023 05:32:35 Td(adult) unspecified formulation 03/10/2003 completed Not Available [facility] 09/12/2023 05:32:35 Influenza, high-dose, quadrivalent, PF 08/06/2022 completed Not Available [facility] 09/12/2023 05:32:36 Influenza, high-dose, quadrivalent, PF 08/08/2021 completed Not Available [facility] 09/12/2023 05:32:36 SARS-COV-2 (COVID-19) vaccine, UNSPECIFIED 01/01/2021 completed Not Available [facility] 09/12/2023 05:32:36 SARS-COV-2 (COVID-19) vaccine, UNSPECIFIED 03/04/2022 completed Not Available [facility] 09/12/2023 05:32:36 COVID-19, mRNA, LNP-S, bivalent, PF, 30 mcg/0.3 mL dose 08/29/2022 completed Not Available [facility] 09/12/20 05:32:36 pneumococcal polysaccharide PPV23 09/19/2018 completed Not Available [facility] 2022 05:32:37 influenza, unspecified formulation 07/19/2014 completed Not Available [facility] 09/12/2023 05:32:37 influenza, unspecified formulation 07/27/2015 completed Not Available [facility] 09/12/2023 05:32:37 influenza, unspecified formulation 07/31/2012 completed Not Available [facility] 09/12/2023 05:32:37 influenza, unspecified formulation 08/11/2018 completed Not Available [facility] 09/12/2023 05:32:37 influenza, unspecified formulation 08/13/2016 completed Not Available [facility] 09/12/2023 05:32:37 influenza, unspecified formulation 08/19/2013 completed Not Available [facility] 09/12/2023 05:32:38 influenza, unspecified formulation 09/16/2019 completed Not Available [facility] 09/12/2023 05:32:38 Influenza, high-dose, quadrivalent, PF 08/12/2023 completed Not Available [facility] 11/14/2023 05:31:33 COVID-19, mRNA, LNP-S, PF, mer-sucrose, 30 mcg/0.3 mL 08/19/2023 completed Not Available [facility] 11/14/2023 05:31:34 Respiratory syncytial virus (RSV) vaccine, unspecified 09/30/2023 completed SAUL PALACIO RN null, [facility] 03/10/2024 13:53:37 SARS-COV-2 (COVID-19) vaccine, UNSPECIFIED 01/29/2021 completed SAUL PALACIO RN null, [facility] 03/10/2024 13:54:18 SARS-COV-2 (COVID-19) vaccine, UNSPECIFIED 08/02/2021 completed SAUL PALACIO RN null, [facility] 03/10/2024 13:54:36 Past Encounters Encounter ID Performer Location Encounter Start Date Encounter Closed Date Diagnosis/Indication Diagnosis SNOMED-CT Code [id number] JAC CLEARY [address] [place] [address] 03/10/2024 13:15:31 03/10/2024 15:05:18 Screening for cardiovascular system disease 407632031 Screening for osteoporosis 798836643 Adult [facility] th examination 170554441 Essential hypertension 47485839 History of polyp of colon 431750319 Health Concerns Section Related Observation LastModified by Organization Detai ls LastModified Time None Recorded Concern Status LastModified by Organization Details LastModified Time None Recorded Payers Encounter Date Sequence Insurance Name Policy Number Policy Granados Covered Member ID Granados Member ID Guarantor Name 03/10/2024 2 [place] [facility] [id number] Harika Farah [id number] Cheryl Farah 03/10/2024 1 [place] [employer] Cheyrl Farah [id number] Cheryl Farah Notes Date Note Type Note Provider Name and Address Organization Details Recorded Time 03/10/2024 text/html HPI Notes: Carlos is a Pleasant 73-year-old female here today for an Annual exam (no longer requires pap smears, mammogram due 11/2024, colonoscopy due 01/2028.) she had an establish care visit with me back in August. Chronic conditions managed at that time. follow up: HTN, HLD, osteopenia, hx of leukopenia (mild). Last 10-year ASCVD risk or was 14.8% on 02/20/2023. Wanted to rescreen cholesterol in a year. Last labs August 2024. last dexa 04/06/19- osteopenia- takes D and calcium last pap normal 2016- needs no further last mammo normal 10/2023 last colon cancer screening 2014, 1 tubular adenmoa, one hyperplastic polyp Denies any acute concerns. IRINA BISWAS, JAC [address], [place], [address], [place] - [facility]. 04/25/2024 21:46:27 OBGyn Episode No OBEpisode recorded.
== END ==
PROVIDERS: Visit Provider Nurse Practitioner Family
DX: M54.12 Radiculopathy, cervical region (principal); M50.31 Other cervical disc degeneration, high cervical region; M50.321 Other cervical disc degeneration at C4-C5 level; M50.322 Other cervical disc degeneration at C5-C6 level
CPT/HCPCS: 72050

== ENCOUNTER 2024-09-21 15:05 | Outpatient (REF) | payer MEDICARE, BC, SELFPAY ==
[2024-09-21 20:25] LABS: ALT 33 U/L (14-59); AST 20 U/L (15-37); Albumin 4.6 g/dL (3.4-5.0); Alkaline Phosphatase 80 U/L (46-116); Anion Gap 10.7 mmol/L (3-11); BUN 10 mg/dL (7-18); CO2 28.3 mmol/L (21.0-32.0); CREATININE 0.7 mg/dL (0.55-1.02); Calcium 9.5 mg/dL (8.5-10.1); Calculated LDL 128 mg/dL (<100); Chloride 100 mmol/L (98-107); Cholesterol 248 mg/dL (<200); Estimated GFR 91.83 (mL/min/1.73m2); Glucose 95 mg/dL (74-106); HDL Cholesterol 103 mg/dL (40-60); Potassium 3.6 mmol/L (3.5-5.1); Sodium 139 mmol/L (136-145); TSH 1.79 uIU/mL (0.36-3.74); Total Protein 7.2 g/dL (6.4-8.2); Triglyceride 85 mg/dL (<150)
== END 2024-09-21 15:06 | disposition home or self-care (01) ==
LOC: NCHCN 15:05
PROVIDERS: Visit Provider Nurse Practitioner Family
DX: E78.5 Hyperlipidemia, unspecified (principal); I10 Essential (primary) hypertension; F41.9 Anxiety disorder, unspecified
CPT/HCPCS: 80053; 80061; 84443

== ENCOUNTER 2025-02-16 16:40 | Outpatient (REF) | payer MEDICARE, BC, SELFPAY ==
[2025-02-16 20:11] LABS: HCT 42.1 % (36.0-46.0); HGB 14.9 g/dL (11.2-15.7); Lymphocytes % 21.4 %; MCHC 35.4 % (32.0-36.0); MCV 93 fL (80-95); MPV 9.7 fL (8.0-11.0); Monocytes % 10.5 %; Neutrophils % 64.7 %; Platelet Count 250 10^3/uL (130-400); RBC 4.52 10^6/uL (3.93-5.22); RDW 11.7 % (11.7-14.6); RDW-SD 39.7 fL
[2025-02-16 20:12] LABS: Abs Immature Grans 0.01 10^3/uL (0.0-0.06); Absolute Basophil Count 0.03 10^3/uL (0.0-0.2); Absolute Eosinophil Count 0.11 10^3/uL (0.0-0.7); Absolute Lymphocyte Count 0.94 10^3/uL (1.2-3.4); Absolute Monocyte Count 0.46 10^3/uL (0.1-0.8); Absolute Neutrophil Count 2.85 10^3/uL (1.2-6.7); Basophils % 0.7 %; Eosinophils % 2.5 %; Immature Grans % 0.2 %
[2025-02-16 20:46] LABS: ALT 37 U/L (14-59); AST 22 U/L (15-37); Albumin 4.6 g/dL (3.4-5.0); Alkaline Phosphatase 79 U/L (46-116); Anion Gap 7.9 mmol/L (3-11); BUN 13 mg/dL (7-18); Bilirubin, Total 0.7 mg/dL (0.2-1.0); CO2 30.1 mmol/L (21.0-32.0); CREATININE 0.8 mg/dL (0.55-1.02); Calcium 9.9 mg/dL (8.5-10.1); Calculated LDL 54 mg/dL (<100); Chloride 100 mmol/L (98-107); Cholesterol 175 mg/dL (<200); Estimated GFR 78.24 (mL/min/1.73m2); Glucose 98 mg/dL (74-106); HDL Cholesterol 112 mg/dL (>or=50); Potassium 3.8 mmol/L (3.5-5.1); Sodium 138 mmol/L (136-145); Total Protein 7.3 g/dL (6.4-8.2); Triglyceride 47 mg/dL (<150)
== END 2025-02-16 16:41 | disposition home or self-care (01) ==
LOC: NCHCN 16:40
PROVIDERS: Visit Provider Nurse Practitioner Family
DX: I10 Essential (primary) hypertension (principal); E78.5 Hyperlipidemia, unspecified
CPT/HCPCS: 80053; 80061; 85025

== ENCOUNTER 2025-04-19 02:05 | Outpatient (CLI) | payer MEDICARE, BC, SELFPAY ==
--- NOTE | 2025-04-19 | DI.DEXA_ITS ---
Exam(s) XR DEXA BONE DENSITY W/WO DAVID EXAM: XR DEXA BONE DENSITY W/WO DAVID CLINICAL HISTORY: Z78.0 Asymptomatic menopausal state, present TECHNIQUE: COMPARISON: CR BONE DENSITY AXIAL STUDY WI from 04/06/2019 FINDINGS: Lateral Spine Image: Unremarkable. No compression deformities identified. Left forearm: Total T-Score: -1.1 Total Z-Score: 1.1 T- and Z-scores: Findings are consistent with osteopenia. Lumbar Spine: Total T-Score: -0.4. This compares to -1.0 on the prior examination. Total Z-Score: 1.9 T- and Z-scores: Within normal limits. IMPRESSION: No evidence of osteoporosis.
== END 2025-04-19 02:25 ==
LOC: DI 02:06
PROVIDERS: Visit Provider Nurse Practitioner Family
DX: Z13.820 Encounter for screening for osteoporosis (principal); Z78.0 Asymptomatic menopausal state
CPT/HCPCS: 77080